=== PATIENT | female | born 1985 | race Caucasian/White ===

== ENCOUNTER 2017-08-12 17:57 | Emergency (ER) | payer OTHER ==
[~2017-08-12] VITALS: Ht 170.2 cm; Wt 88.5 kg
[~2017-08-12 17:57] MED LIST: IBUP600 PO; LORTA5 PO; PRENTAB62 PO
[2017-08-12 18:04] VITALS: BP 160/96; PULSE 86; RESP 18; TEMP 98.3; O2SAT 99
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
== END 2017-08-12 19:51 | disposition home or self-care (01) ==
LOC: NEPE 17:57
DX: O99.89 Other specified diseases and conditions complicating pregnancy, childbirth and the puerperium (principal); M62.830 Muscle spasm of back; V43.62XA Car passenger injured in collision with other type car in traffic accident, initial encounter; Z3A.09 9 weeks gestation of pregnancy
CPT/HCPCS: 99284